=== PATIENT | male | born 1995 | race Caucasian/White ===

== ENCOUNTER 2023-05-14 22:00 | Emergency (ER) | payer SELFPAY ==
[2023-05-14 22:33] VITALS: BP_SYST 135; PULSE 81; RESP 20; TEMP 97.3; O2SAT 99
== END 2023-05-14 23:52 | disposition left against medical advice (07) ==
LOC: SED 22:00
DX: R51.9 Headache, unspecified (principal); Z53.21 Procedure and treatment not carried out due to patient leaving prior to being seen by health care provider
CPT/HCPCS: 99281